=== PATIENT | male | born 1970 | race Caucasian/White ===

== ENCOUNTER 2016-07-01 11:01 | Observation (INO) | payer OTHER ==
[~2016-07-01] VITALS: Ht 172.7 cm; Wt 66.0 kg
[2016-07-01] MEDS ORDERED: SOD CHLORIDE 0.9% 1,000 ML IV STA (11:24)
--- NOTE | 2016-07-01 11:33 | ERA ---
ER Documentation Chief Complaint Date/Time DATE: 07/01/16 TIME: 11:30 Chief Complaint HPI Patient is a 45-year-old male with no past medical history who presents with sudden loss of consciousness while at the checkout aisle of a store. He was witnessed to fall forward onto the counter while trying to pay for shopping items. Bystanders stated that there was no sign of trauma. The patient was slowly lowered to the ground and remained unconscious for approximately 30 seconds. There was no seizure-like activity. According to paramedics the patient appeared pale, cool, and diaphoretic on their arrival. As the patient regained consciousness he complained complained of the need to defecate. Patient denies feeling lightheaded before or after episode. Denies chest pain, shortness of breath, recent illness, fever, abdominal pain, nausea or vomiting. He does state that he feels like he needs to defecate currently. He denies headache. ROS All systems reviewed and are negative except as per history of present illness. Medications Home Meds No Active Prescriptions or Reported Meds Allergies Allergies: Coded Allergies: No Known Allergy (Unverified , 07/01/16) PMhx/Soc Past medical history: None Past surgical history: None Social history: Denies tobacco, alcohol or illicit drugs. FmHx Family History: No coronary disease, No diabetes Physical Exam Vitals Vital Signs Date Time Temp Pulse Resp B/P Pulse Ox O2 Delivery O2 Flow Rate FiO2 07/01/16 13:03 80 18 105/76 100 Room Air 07/01/16 11:38 98.1 68 16 103/86 99 Physical Exam Const: Alert, no acute distress, no pallor, no icterus Head: Atraumatic Eyes: Normal Conjunctiva ENT: Normal External Ears, Nose and Mouth. Neck: Full range of motion. No meningismus. Resp: Clear to auscultation bilaterally, no wheezes, no rales Cardio: Regular rate and rhythm, no murmurs Abd: Soft, non tender, non distended. Normal bowel sounds Skin: No petechiae or rashes Back: No midline or flank tenderness Ext: No cyanosis, or edema Neur: Alert and oriented 4. Awake and alert, cranial nerves II through XII intact bilaterally, strength and sensation intact in 4 extremities. Psych: Normal Mood and Affect Result Diagram: 07/01/16 1130 07/01/16 1130 Results 24 hrs Laboratory Tests Test 07/01/16 11:30 07/01/16 12:00 White Blood Count 10.810^3/ul Red Blood Count 5.0510^6/ul Hemoglobin 15.6g/dl Hematocrit 45.0% Mean Corpuscular Volume 89.1fl Mean Corpuscular Hemoglobin 30.9pg Mean Corpuscular Hemoglobin Concent 34.7g/dl Red Cell Distribution Width 12.3% Platelet Count 83500^3/UL Mean Platelet Volume 11.7fl Neutrophils % 79.8% Lymphocytes % 13.7% Monocytes % 5.4% Eosinophils % 0.4% Basophils % 0.3% Nucleated Red Blood Cells % 0.0/100WBC Neutrophils # 8.710^3/ul Lymphocytes # 1.510^3/ul Monocytes # 0.610^3/ul Eosinophils # 0.010^3/ul Basophils # 0.010^3/ul Nucleated Red Blood Cells # 0.010^3/ul Sodium Level 140mmol/L Potassium Level 3.6mmol/L Chloride Level 104mmol/L Carbon Dioxide Level 26mmol/L Anion Gap 14 Blood Urea Nitrogen 14mg/dl Creatinine 0.79mg/dl Glucose Level 132mg/dl Calcium Level 8.9mg/dl Troponin I < 0.012ng/ml Urine Color LT. YELLOW Urine Clarity CLEAR Urine pH 7.0 Urine Specific Pauline 1.015 Urine Ketones NEGATIVE Urine Nitrite NEGATIVE Urine Bilirubin NEGATIVE Urine Urobilinogen 0.2 E.U./dL Urine Leukocyte Esterase NEGATIVE Urine Hemoglobin NEGATIVE Urine Glucose 0.1%% Urine Total Protein NEGATIVE Current Medications Medications (Trade) Dose Ordered Sig/Bekah Route PRN Reason Start Time Stop Time Status Last Admin Dose Admin Sodium Chloride (NS) 1,000 ml @ 1,000 mls/hr Q1H STAT IV 07/01/16 11:24 07/01/16 12:23 DC Ondansetron HCl (Zofran Inj) 4 mg ER BRIDGE PRN IV NAUSEA AND/OR VOMITING 07/01/16 15:00 07/02/16 14:59 Acetaminophen (Tylenol Tab) 650 mg ER BRIDGE PRN PO MILD PAIN/FEVER 07/01/16 15:00 07/02/16 14:59 Procedures/MDM EKG read by me: Time 11:00, rate 65 Rhythm: Normal sinus [place]: Normal Intervals: First-degree AV block, incomplete right bundle branch block ST-T waves: no ischemic changes Ectopy: No Q-waves: No Impression: First-degree AV block, no ischemic changes, no Brugada MDM: Patient with syncope without prodrome. EKG has first-degree AV block and incomplete right bundle branch block, but no QRS widening or other block. No prolonged QT. Patient has not experienced prior episodes of syncope. Patient has no medical risk factors, but I believe that he should be admitted for 24 hours of telemetry given no symptoms or prodrome that would explain the cause of syncope such as vasovagal reaction. This was discussed with Dr. Christensen who will admit the patient to observation. Departure Diagnosis: Primary Impression: Syncope Qualified Code: R55 - Syncope, unspecified syncope type Condition: Stable SANTOS EDWARDS MD Jul 01, 2016 11:33
[2016-07-01 11:53] LABS: ADD SCAN DIFF NO
[2016-07-01 12:06] LABS: CHLORIDE 104 mmol/L (97-110); POTASSIUM 3.6 mmol/L (3.5-5.1); SODIUM 140 mmol/L (135-144)
[2016-07-01 12:08] LABS: CREATININE 0.79 mg/dl (0.61-1.24)
[2016-07-01 12:09] LABS: ANION GAP 14 (8-16); BLOOD UREA NITROGEN 14 mg/dl (7-20); CALCIUM 8.9 mg/dl (8.4-10.2); CARBON DIOXIDE 26 mmol/L (21-31); GLUCOSE 132 mg/dl (70-220)
[2016-07-01 12:10] LABS: BASOPHILS % 0.3 % (0.0-2.0); EOSINOPHILS % 0.4 % (0.0-7.0); HEMOGLOBIN 15.6 g/dl (14.0-18.0); LYMPHOCYTES # 1.5 10^3/ul (0.8-2.9); LYMPHOCYTES % 13.7 % (15.0-51.0); MEAN CORPUSCULAR HEMOGLOBIN 30.9 pg (29.0-33.0); MEAN CORPUSCULAR HGB CONC 34.7 g/dl (32.0-37.0); MEAN CORPUSCULAR VOLUME 89.1 fl (82.0-101.0); MEAN PLATELET VOLUME 11.7 fl (7.4-10.4); MONOCYTE # 0.6 10^3/ul (0.3-0.9); MONOCYTES % 5.4 % (0.0-11.0); NEUTROPHIL # 8.7 10^3/ul (1.6-7.5); NEUTROPHILS % 79.8 % (39.0-77.0); PLATELET COUNT 218 10^3/UL (140-415); RED BLOOD COUNT 5.05 10^6/ul (4.70-6.10); RED CELL DISTRIBUTION WIDTH 12.3 % (11.5-14.5); WHITE BLOOD COUNT 10.8 10^3/ul (4.8-10.8)
[2016-07-01 12:23] LABS: ADD UMIC NO; URINE BILIRUBIN (Dip) NEGATIVE (NEGATIVE); URINE BLOOD (Dip) NEGATIVE (NEGATIVE); URINE COLOR LT. YELLOW (YELLOW); URINE KETONES (Dip) NEGATIVE (NEGATIVE); URINE LEUKOCYTE ESTERASE (Dip) NEGATIVE (NEGATIVE); URINE NITRITE (Dip) NEGATIVE (NEGATIVE); URINE TOTAL PROTEIN (Dip) NEGATIVE (NEGATIVE); URINE UROBILINOGEN (Dip) 0.2 E.U./dL (0.1-1.0)
[2016-07-01 12:34] LABS: TROPONIN-I < 0.012 ng/ml (0.00-0.12)
--- NOTE | 2016-07-01 12:34 | RADRPT ---
PROCEDURE: XR Chest. CLINICAL INDICATION: Syncope TECHNIQUE: Single AP view of the chest were obtained COMPARISON: None FINDINGS: The heart and mediastinum are within normal limits. The pulmonary vasculature are unremarkable. The aorta is unremarkable. There is no lung consolidation, pleural effusion or pneumothorax. There i s no acute osseous abnormality. IMPRESSION: No acute disease. RPTAT: AA .Bernadette Martinez MD, Date Time Electronically viewed and signed by .Bernadette Martinez MD, MD on 07/01/2016 12:34 .J/
[2016-07-01] MEDS ORDERED: ACETAMINOPHEN 325 MG TAB PO PRN ×2 (15:00→15:30)
[2016-07-01] MEDS ORDERED: ONDANSETRON 4 MG INJ IV PRN ×2 (15:00→15:30)
[2016-07-01] MEDS: SOD CHLORIDE 0.45% 1,000 ML IV SCH (15:04)
[2016-07-01] MEDS ORDERED: LORAZEPAM 2 MG INJ IV PRN (15:30)
[2016-07-01] MEDS ORDERED: morphine 2 MG INJ IV PRN (15:30)
[2016-07-01] MEDS ORDERED: ALBUTEROL/IPRATROPIUM (NEB) 3 ML AMP HHN PRN (15:30)
[2016-07-01] MEDS ORDERED: hydrALAzine 20 MG INJ IV PRN (15:30)
[2016-07-01] MEDS ORDERED: NITROGLYCERIN (SL) 0.4 MG TAB SL PRN (15:30)
[2016-07-01] MEDS ORDERED: NACL 0.9% 3 ML SYG IV SCH (15:30)
[2016-07-01] MEDS ORDERED: MAGNESIUM HYDROXIDE 30ML CUP PO PRN (15:30)
[2016-07-01] MEDS ORDERED: DOCUSATE SODIUM 100 MG CAP PO PRN (15:30)
[2016-07-01] MEDS ORDERED: HYDROCODONE/APAP (5/325) TAB PO PRN (15:30)
[2016-07-01] MEDS ORDERED: NA PHOSPHATE/BIPHOS 133 ML ENEMA PR PRN (15:30)
--- NOTE | 2016-07-01 15:52 | RADRPT ---
PROCEDURE: Carotid ultrasound CLINICAL INDICATION: Syncope, carotid bruits TECHNIQUE: Carvajal scale, color doppler, spectral doppler ultrasound of the bilateral carotid and corby tebral arteries. This study indirectly references the measurement of the distal ICA diameter as the denominator for s tenosis measurement. Validated velocity measurements with angiographic measurements, velocity criter ia are extrapolated from diameter data as defined by: *Cartoid artery stenosis: carvajal-scale and Doppl er US diagnosis. Society of Radiologists in Ultrasound Consensus Conference. Radiology 2003; 229: 34 0-346. SRU Consensus Conference Criteria for the Diagnosis of Carotid Artery Stenosis* Degree of Stenosis, % ICA PSV, cm/sec Plaque Estimate, % ICA/CCA PSV Ratio Normal <125 None <2.0 <50 <125 <50 <2.0 50 69 125-230 >50 2.0-4.0 >70 but less than near occlusion >230 >50 <4.0 Near occlusion High, low, or undetectable Visible Variable Total occlusion Undetectable Visible, no detectable lumen Not applicable COMPARISON: No prior studies are available for comparison. FINDINGS: Location Right CCA87 cm/sec Prox ICA 44 cm/sec Mid ICA37 cm/sec Dist ICA46 cm/sec ECA77 cm/sec ICA/CCA0.5 Left CCA85 cm/sec Prox ICA 63 cm/sec Mid ICA53 cm/sec Dist ICA45 cm/sec ECA61 cm/sec ICA/CCA0.7 Plaque burden: No significant plaque is seen. Antegrade flow is seen within the vertebral arteries bilaterally. IMPRESSION: No evidence of a hemodynamically significant carotid stenosis. RPTAT: AADD .Adolfo Jerome MD, Date Time Electronically viewed and signed by .Adolfo Jerome MD, MD on 07/01/2016 15:52 .B/
--- NOTE | 2016-07-01 16:23 | HP ---
DATE OF ADMISSION: 07/01/2016 CHIEF COMPLAINT: Syncope. HISTORY OF PRESENT ILLNESS: A 45-year-old male with no past medical history, who said that he was a t a store today at the check-out aisle and had a sudden loss of consciousness. Denied any palpitati ons, dizziness or lightheadedness before the symptom happened. He said it occurred 1 year ago befor e when he was [place] He says he sought medical attention at that t uriel, but he believes he did not have any abnormalities found. The patient was only unconscious toda y for about 30 seconds. No signs of any seizure-like activity as well. The patient thought that he had a bowel movement right before the episode happened. No chest pain. No upper or lower GI bleedi ng. No nausea or vomiting. No fevers or chills. No headache. PAST MEDICAL HISTORY: As stated above. ALLERGIES: NO KNOWN DRUG ALLERGIES. MEDICATIONS AT HOME: None. PAST SURGICAL HISTORY: None. FAMILY HISTORY: Noncontributory. SOCIAL HISTORY: Negative for smoking, drinking, or IV drug abuse. PHYSICAL EXAMINATION: VITAL SIGNS: Today T-max 98.1, pulse 60 to 80, respirations 16 to 18, blood pressure is 103/86, satu rating at 99% on room air. GENERAL: The patient is lying in bed, answering questions appropriately, in no acute distress. HEENT: Pupils are equal, round, and react to light. Extraocular muscles are intact. NECK: Supple. No thyromegaly. LUNGS: Clear to auscultation bilaterally. CARDIOVASCULAR: S1, S2 heard. No rubs or gallops. ABDOMEN: Soft, nontender, nondistended. Normal bowel sounds. No rebound or guarding. MUSCULOSKELETAL: No lower extremity edema bilaterally. NEUROLOGIC: No focal deficits noted. LABORATORY: CBC is normal. Basic metabolic panel is normal. Troponin is negative x1. UA is negat starr. IMAGING: He had a chest x-ray performed that shows no acute disease. EKG did show normal sinus rhythm, heart rate of 65. There were findings of first-degree AV block, b ut no ST changes or T-wave inversions noted. ASSESSMENT AND PLAN: A 45-year-old male coming in with a syncopal event. 1. Syncope. Admit the patient to the telemetry floor. Will have them monitor his heart rate very carefully, especially due to the fact that he has a first-degree AV block, but again no signs of any chest pain. Will trend his troponins as well. If there are any abnormalities on these tests, we w ill consider a cardiology consult. Will get a 2D echocardiogram and carotid Doppler studies as well . Will check TSH, A1c, and lipid panel as well. 2. Gastrointestinal prophylaxis. PPI. 3. Deep vein thrombosis prophylaxis. Heparin subcutaneously. Dictated By: AYANNA NICK Conf#: [id number] DID#: [id number]
[2016-07-01 16:53] LABS: CREATINE KINASE 94 IU/L (23-200)
[2016-07-01 17:08] VITALS: PULSE 73
[2016-07-01 17:18] LABS: CK-MB 0.97 ng/ml (0.0-2.4); TROPONIN-I < 0.012 ng/ml (0.00-0.12)
[2016-07-01 17:30] VITALS: BP 108/64; PULSE 77; RESP 20
[2016-07-01 17:35] VITALS: Ht 172.7 cm; Wt 66.0 kg
[2016-07-01 20:03] VITALS: PULSE 68
[2016-07-01] MEDS: HEPARIN 5,000 UNIT/0.5 ML VIAL SC SCH ×2 (21:00→21:55)
[2016-07-01 22:28] LABS: CREATINE KINASE 81 IU/L (23-200)
[2016-07-01 22:44] LABS: TROPONIN-I < 0.012 ng/ml (0.00-0.12)
[2016-07-02] VITALS (9 sets, daily range): BP systolic 103–118; BP diastolic 68–80; PULSE 60–81; RESP 17–20
[2016-07-02] MEDS: SOD CHLORIDE 0.45% 1,000 ML IV SCH (03:47)
[2016-07-02] MEDS ORDERED: PANTOPRAZOLE (EC) 40 MG TAB PO SCH (06:00)
[2016-07-02 06:33] LABS: CHOL/HDL RATIO 4.1 RATIO
[2016-07-02 07:18] LABS: THYROID STIMULATING HORMONE 0.652 MIU/L (0.465-4.680)
[2016-07-02 08:21] LABS: ADD SCAN DIFF NO
[2016-07-02 08:45] LABS: BASOPHILS % 0.3 % (0.0-2.0); EOSINOPHILS # 0.1 10^3/ul (0.0-0.5); EOSINOPHILS % 1.5 % (0.0-7.0); HEMATOCRIT 45.1 % (42.0-52.0); HEMOGLOBIN 15.5 g/dl (14.0-18.0); LYMPHOCYTES # 1.6 10^3/ul (0.8-2.9); LYMPHOCYTES % 20.3 % (15.0-51.0); MEAN CORPUSCULAR HEMOGLOBIN 30.9 pg (29.0-33.0); MEAN CORPUSCULAR HGB CONC 34.4 g/dl (32.0-37.0); MEAN CORPUSCULAR VOLUME 89.8 fl (82.0-101.0); MEAN PLATELET VOLUME 11.8 fl (7.4-10.4); MONOCYTE # 0.7 10^3/ul (0.3-0.9); MONOCYTES % 8.9 % (0.0-11.0); NEUTROPHIL # 5.3 10^3/ul (1.6-7.5); NEUTROPHILS % 68.6 % (39.0-77.0); PLATELET COUNT 185 10^3/UL (140-415); RED BLOOD COUNT 5.02 10^6/ul (4.70-6.10); RED CELL DISTRIBUTION WIDTH 12.7 % (11.5-14.5); WHITE BLOOD COUNT 7.8 10^3/ul (4.8-10.8)
[2016-07-02] MEDS: HEPARIN 5,000 UNIT/0.5 ML VIAL SC SCH (09:00)
[2016-07-02 09:05] LABS: CREATININE 0.81 mg/dl (0.61-1.24)
[2016-07-02 09:06] LABS: MAGNESIUM 2.1 mg/dl (1.7-2.5); PHOSPHORUS 2.6 mg/dl (2.5-4.9)
--- NOTE | 2016-07-02 12:22 | PDOCDIS ---
Discharge Instructions CONDITION Patient Condition: Stable HOME CARE INSTRUCTIONS: Diet Instructions: Regular ACTIVITY: Activity Restrictions: Slowly Increase Activity FOLLOW UP/APPOINTMENTS Appointments Please take your medications. Please see your PMD in 1 week. AYANNA HDEZ Jul 02, 2016 12:22
--- NOTE | 2016-07-02 13:07 | DS ---
DATE OF ADMISSION: 07/01/2016 DATE OF DISCHARGE: 07/02/2016 HOSPITAL COURSE: This is a 45-year-old male originally admitted on 07/01/2016, being discharged chino e on 07/02/2016. The patient came in with syncope. He was admitted. It was thought to be vasovaga l in cause. He was found with some first degree AV block on his EKG, but he was admitted to telemet ry floor. He had no further arrhythmias, no further syncopal events. We trended his troponins whic h were negative x3 as well. Over the course of his hospital stay, he was able to ambulate and rosio ate a p.o. diet. He had a carotid Doppler study performed that showed no evidence of any hemodynamically significant carotid stenosis and the patient has been ordered for an echocardiogram that is still pending as wel l, but once the echocardiogram is performed, the patient will be discharged home today in improved c ondition as he will follow up the results as an outpatient in next 24 to 48 hours. The patient will be discharged on no new medications, just continue monitoring for any further signs of any syncope and follow up with his primary care doctor in 1 week. FINAL DIAGNOSES: Syncope, thought to be due to stress related or vasovagal with negative carotid Do ppler studies and echocardiogram results pending. Now alert, no signs of any pathologic arrhythmias . Time spent discharging patient: 40 minutes. Dictated By: AYANNA NICK Conf#: [id number] DID#: [id number]
--- NOTE | 2016-07-02 16:37 | RADRPT ---
Echocardiogram Report Patient Name: PIERCE WASHINGTON Gender: Male Date: 1970 Study Date: 02-Jul-2016 Executive Coordinator: DEBORAH Location: I Ref. Physician: AYANNA HDEZ Quality: Adequate Procedures: Transthoracic echocardiogram with complete 2D, M-Mode, and doppler examination. Indications: Syncope. 2D/M Mode Doppler Measurement Value Normal Ranges Measurement Value Normal Ranges AoR Diam MM 2.8 cm AV Peak [place] 1.2 m/sec ACS MM 2.0 cm AV Peak PG 5.6 mmHg LVIDd 2D 4.4 3.5 - 5.6 cm LVOT Peak PG 3.1 mmHg LVIDs 2D 2.7 2.1 - 4.1 cm MV E Peak [place] 0.6 m/sec LVPWd 2D 0.8 0.6 - 1.1 cm MV A Peak [place] 0.3 m/sec IVSd 2D 0.7 0.6 - 1.1 cm MV E/A 1.7 EDV 2D 88.9 cm3 MV Decel Time 188 msec ESV 2D 19.5 cm3 MV Decel Freestone 3 LA Dimen 2D 3.1 2.3 - 4.0 cm MV E/A 1.7 TR Peak [place]man 2.3 m/sec TR Peak PG 21.7 mmHg PV Peak [place] 1.1 m/sec PV Peak PG 5.0 mmHg RVSP 24.7 mmHg Findings Left Ventricle: Normal left ventricular systolic function. Normal left ventricular cavity size. Normal left ventricular wall thickness. Ejection fraction is visually estimated at 60 %. Tissue Doppler/Mitral Doppler indices are within normal limits. E/E`=3. Right Ventricle: Normal right ventricular size. Normal right ventricular systolic function. Left Atrium: The left atrium is normal in size. Right Atrium: The right atrium is normal in size. Atrial Septum: Normal atrial septum. Mitral Valve: Normal appearance of the mitral valve. Trace mitral regurgitation. Aortic Valve: No significant aortic stenosis or insufficiency. Normal trileaflet aortic valve structure. Tricuspid Valve: Normal appearance of the tricuspid valve. Estimated peak PA systolic pressure 25 mmHg. There is trace tricuspid regurgitation. Pulmonic Valve: Normal pulmonic valve appearance. No evidence of pulmonic regurgitation. Pericardium: Normal pericardium with no significant pericardial effusion. Aorta: Normal aortic root. IVC: Normal size and normal respiratory collapse consistent with normal right atrial pressure. Pulmonary Artery: Normal pulmonary artery size. Conclusions 1.Normal left ventricular systolic function. Normal left ventricular cavity size. Normal left ventricular wall thickness. Ejection fraction is visually estimated at 60 %. Tissue Doppler/Mitral Doppler indices are within normal limits. E/E`=3. 2.Normal appearance of the mitral valve. Trace mitral regurgitation. 3.Normal appearance of the tricuspid valve. Estimated peak PA systolic pressure 25 mmHg. There is trace tricuspid regurgitation. Electronically Signed By: Jose Saxena 02-Jul-2016 16:36:05 -0700 Patient Name: PIERCE WASHINGTON Study Date: 02-Jul-2016 [id number]
== END 2016-07-02 16:45 | disposition home or self-care (01) ==
LOC: E/R 11:01 → MS4 14:33
PROVIDERS: ADMIT Internal Medicine; ATTEND Internal Medicine
DX: R55 Syncope and collapse (principal)
CPT/HCPCS: 36415; 71010; 80048; 80061; 81003; 82550; 82553; 83036; 83735; 84100; 84439; 84443; 84484; 85025; 87086; 93005; 93306; 93880; 99217; 99285; G0378; J1644; J7030